=== PATIENT | female | born 1950 | race Caucasian/White ===

== ENCOUNTER → 2018-05-13 | Day surgery (SDC) | payer OTHER, MEDICARE ==
[~2018-05-13] MED LIST: Zoledronic Acid/Mannitol/Water 5 MG/100 ML INFUS.BOT IV ONE
== END ==
LOC: DS 10:14
PROVIDERS: ATTEND Internal Medicine
DX: M81.0 Age-related osteoporosis without current pathological fracture (principal); R13.10 Dysphagia, unspecified
CPT/HCPCS: 96365; J3489

== ENCOUNTER 2019-05-14 08:54 | Day surgery (SDC) | payer OTHER, MEDICARE ==
[2019-05-14] MEDS ORDERED: Zoledronic Acid/Mannitol/Water 5 MG/100 ML INFUS.BOT IV ONE (09:15)
[2019-05-14 10:18] VITALS: BP 105/56; TEMP 97.9; O2SAT 100; BMI 20.7
== END 2019-05-14 10:10 | disposition home or self-care (01) ==
LOC: DS 08:54
PROVIDERS: ATTEND Internal Medicine
DX: M81.0 Age-related osteoporosis without current pathological fracture (principal); R13.10 Dysphagia, unspecified
CPT/HCPCS: 96365; J3489